=== PATIENT | female | born 1990 | race American Indian/Alaskan Native ===

== ENCOUNTER 2016-10-04 17:07 | Emergency (ER) | payer SELFPAY ==
[2016-10-04 18:02] LABS: Basophils % (Auto) 0.7 % (0.0-1.8); Eosinophils % (Auto) 1.4 % (0.0-4.3); Hematocrit 34.6 % (30.3-42.9); Hemoglobin 11.6 gm/dl (10.1-14.3); Mean Corpuscular HGB Conc 33 % (30-34); Mean Corpuscular Hemoglobin 30 pg (28-32); Mean Corpuscular Volume 91 fl (79-97); Platelet Count 301 K/mm3 (140-440); Red Blood Count 3.82 M/mm3 (3.65-5.03); Red Cell Distribution Width 13.4 % (13.2-15.2); White Blood Count 5.5 K/mm3 (4.5-11.0)
[2016-10-04 19:22] LABS: Bilirubin,Urine NEG (Negative); Blood,Urine LG (Negative); Ketones,Urine NEG (Negative); Leukocyte Esterase,Urine NEG (Negative); Mucus,Urine 3+ /HPF; Nitrite,Urine NEG (Negative)
[2016-10-04 19:26] LABS: RBC,Urine > 182.0 /HPF (0.0-6.0)
--- NOTE | 2016-10-04 19:59 | Emergency Department Report ---
ED Female HPI - General Chief complaint: Vaginal Bleeding Stated complaint: VAGINAL BLEEDING Time Seen by Provider: 10/04/16 19:56 Source: patient Mode of arrival: Ambulatory Limitations: No Limitations - History of Present Illness Initial comments: Patient here states that she is 5 weeks per home test. She says she's been having vaginal bleeding and denies any clots. She says she just started using pads but the blood is bright red and has been soaking her underwear. This started today. She is also complaining of abdominal cramping at 10 out of 10. Denies any urinary burning, frequency or urgency. Denies any vaginal discharge. Patient reports that she had a miscarriage in 2015. Last menstrual period was 09/01/2016. She denies any medical problems. Denies any nausea vomiting or diarrhea. She denies any fever or chills. MD Complaint: vaginal bleeding, pelvic pain -: This morning Radiation: non-radiating Severity: severe Severity scale (0 -10): 10 Quality: cramping Consistency: constant Improves with: none Worsens with: none Are you Now?: Yes Last Menstrual Period: 09/01/16 EDC: 06/08/17 Associated Symptoms: vaginal bleeding, abdominal pain. denies: vaginal discharge, nausea/vomiting, fever/chills, headaches, loss of appetite, dysuria, hematuria, rash, seizure, shortness of breath, syncope, weakness - Related Data Sexually active: Yes Previous Rx's Medication Instructions Recorded Last Taken Type Vit No.130/Iron/FA 1 each PO QDAY #30 tablet 10/04/16 Unknown Rx [ Tablet] Allergies Allergy/AdvReac Type Severity Reaction Status Date / Time No Known Allergies Allergy Unverified 10/04/16 17:26 ED Review of Systems ROS: Stated complaint: VAGINAL BLEEDING Other details as noted in HPI Comment: All other systems reviewed and negative Constitutional: denies: chills, fever Respiratory: no symptoms reported Cardiovascular: denies: chest pain, palpitations, edema, syncope Gastrointestinal: abdominal pain. denies: nausea, vomiting, diarrhea, constipation, hematemesis Genitourinary: other (vaginal bleeding). denies: urgency, dysuria, frequency, hematuria, discharge Musculoskeletal: denies: back pain, arthralgia Skin: denies: rash Neurological: denies: headache, weakness, numbness, paresthesias, abnormal gait , vertigo ED Past Medical Hx - Past Medical History Previous Medical History?: No - Surgical History Past Surgical History?: No - Family History Family history: no significant - Social History Smoking Status: Never Smoker Substance Use Type: None - Medications Home Medications: Home Medications Medication Instructions Recorded Confirmed Last Taken Type Vit No.130/Iron/FA 1 each PO QDAY #30 tablet 10/04/16 Unknown Rx [ Tablet] ED Physical Exam - General Limitations: No Limitations General appearance: alert, in no apparent distress - Head Head exam: Present: atraumatic, normocephalic, normal inspection - Eye Eye exam: Present: PERRL, EOMI. Absent: periorbital swelling, periorbital tenderness - ENT ENT exam: Present: normal exam, normal orophraynx, mucous membranes moist, TM's normal bilaterally, normal external ear exam - Neck Neck exam: Present: normal inspection, full ROM. Absent: tenderness, meningismus, lymphadenopathy - Respiratory Respiratory exam: Present: normal lung sounds bilaterally. Absent: respiratory distress, chest wall tenderness - Cardiovascular Cardiovascular Exam: Present: regular rate, normal rhythm, normal heart sounds - GI/Abdominal GI/Abdominal exam: Present: soft, normal bowel sounds. Absent: distended, tenderness, guarding, rebound, rigid - External exam: Present: normal external exam. Absent: erythema, swelling, lacerations, ecchymosis, bleeding Speculum exam: Present: vaginal bleeding. Absent: erythema, vaginal discharge, cervical discharge, foreign body, tissue, laceration Bi-manual exam: Present: normal bi-manual exam - Expanded Exam Expanded Female exam: Absent: vaginal laceration, tissue present in vagina, herpetic lesions, vulvar erythema, vulvar tenderness, foreign body External exam: Present: normal Amniotic fluid: Present: none Speculum exam: Present: cervical OS closed - Extremities Exam Extremities exam: Present: normal inspection, full ROM, normal capillary refill. Absent: tenderness, pedal edema, joint swelling, calf tenderness - Back Exam Back exam: Present: normal inspection, full ROM. Absent: tenderness, CVA tenderness (R), CVA tenderness (L), muscle spasm, paraspinal tenderness, vertebral tenderness, rash noted - Neurological Exam Neurological exam: Present: alert, oriented X3, normal gait, reflexes normal. Absent: motor sensory deficit - Psychiatric Psychiatric exam: Present: normal affect, normal mood - Skin Skin exam: Present: warm, dry, intact, normal color. Absent: rash ED Course Vital Signs 10/04/16 17:27 Temperature 98.8 F Pulse Rate 64 Respiratory 16 Rate Blood Pressure 106/67 O2 Sat by Pulse 100 Oximetry Vital Signs 10/04/16 10/04/16 17:27 21:14 Temperature 98.8 F 98 F Pulse Rate 64 61 Respiratory 16 18 Rate Blood Pressure 106/67 Blood Pressure 107/62 [Left] O2 Sat by Pulse 100 100 Oximetry - Reevaluation(s) Reevaluation #1: 10/04/16 21:16 Patient is stable. Ultrasound done and awaiting wet prep and ultrasound results. ED Medical Decision Making - Lab Data Result diagrams: 10/04/16 17:43 Lab Results 10/04/16 10/04/16 10/04/16 Range/Units 17:43 17:43 17:48 WBC 5.5 (4.5-11.0) K/mm3 RBC 3.82 (3.65-5.03) M/mm3 Hgb 11.6 (10.1-14.3) gm/dl Hct 34.6 (30.3-42.9) % MCV 91 (79-97) fl MCH 30 (28-32) pg MCHC 33 (30-34) % RDW 13.4 (13.2-15.2) % Plt Count 301 (140-440) K/mm3 Lymph % (Auto) 31.4 (13.4-35.0) % [place] % (Auto) 8.0 H (0.0-7.3) % Eos % (Auto) 1.4 (0.0-4.3) % Baso % (Auto) 0.7 (0.0-1.8) % Lymph # 1.7 (1.2-5.4) K/mm3 [place] # 0.4 (0.0-0.8) K/mm3 Eos # 0.1 (0.0-0.4) K/mm3 Baso # 0.0 (0.0-0.1) K/mm3 Seg Neutrophils % 58.5 (40.0-70.0) % Seg Neutrophils # 3.2 (1.8-7.7) K/mm3 HCG, Quant [id number] H (0-4) mIU/mL Urine Color (Yellow) Urine Turbidity (Clear) Urine pH (5.0-7.0) Ur Specific [place] (1.003-1.030) Urine Protein (Negative) mg/dL Urine Glucose (UA) (Negative) mg/dL Urine Ketones (Negative) mg/dL Urine Blood (Negative) Urine Nitrite (Negative) Urine Bilirubin (Negative) Urine Urobilinogen (<2.0) mg/dL Ur Leukocyte Esterase (Negative) Urine WBC (Auto) (0.0-6.0) /HPF Urine RBC (Auto) (0.0-6.0) /HPF U Epithel Cells (Auto) (0-13.0) /HPF Urine Mucus /HPF Blood Type B POSITIVE Antibody Screen Negative 10/04/16 Range/Units 18:48 WBC (4.5-11.0) K/mm3 RBC (3.65-5.03) M/mm3 Hgb (10.1-14.3) gm/dl Hct (30.3-42.9) % MCV (79-97) fl MCH (28-32) pg MCHC (30-34) % RDW (13.2-15.2) % Plt Count (140-440) K/mm3 Lymph % (Auto) (13.4-35.0) % [place] % (Auto) (0.0-7.3) % Eos % (Auto) (0.0-4.3) % Baso % (Auto) (0.0-1.8) % Lymph # (1.2-5.4) K/mm3 [place] # (0.0-0.8) K/mm3 Eos # (0.0-0.4) K/mm3 Baso # (0.0-0.1) K/mm3 Seg Neutrophils % (40.0-70.0) % Seg Neutrophils # (1.8-7.7) K/mm3 HCG, Quant (0-4) mIU/mL Urine Color Yellow (Yellow) Urine Turbidity Slightly-cloudy (Clear) Urine pH 6.0 (5.0-7.0) Ur Specific [place] 1.027 (1.003-1.030) Urine Protein 30 mg/dl (Negative) mg/dL Urine Glucose (UA) Neg (Negative) mg/dL Urine Ketones Neg (Negative) mg/dL Urine Blood Lg (Negative) Urine Nitrite Neg (Negative) Urine Bilirubin Neg (Negative) Urine Urobilinogen 2.0 (<2.0) mg/dL Ur Leukocyte Esterase Neg (Negative) Urine WBC (Auto) 4.0 (0.0-6.0) /HPF Urine RBC (Auto) > 182.0 (0.0-6.0) /HPF U Epithel Cells (Auto) 3.0 (0-13.0) /HPF Urine Mucus 3+ /HPF Blood Type Antibody Screen Wet prep reveal no scleral, no yeast or Trichomonas. Gonorrhea and chlamydia tests pending - Radiology Data Radiology results: report reviewed Any chance vaginal and transabdominal shows single live intrauterine gestation at approximately 5 weeks and 6 days. heartbeat is 100 bpm. EDC 2016. Subchorionic hemorrhage is present. 1.8 cm cyst to right ovary - Medical Decision Making Collaborated with Dr. Gannon on management ED course: Patient presented to emergency room with vaginal bleeding and I suspect that she is at 5 weeks due to positive home test. Quantitative hCG positive. Ultrasound transvaginal and transabdominal reveal patient at 5 weeks 6 days with heart beat at 100 bpm. Patient with some subchorionic bleed and right ovarian cyst. Patient with prep negative and gonorrhea and chlamydia test is pending. RESULTS and ultrasound result discussed with patient. Her that this is considered a threatened and she needs to follow up with [facility] and 2 days. She does not have [facility] for her to on-call [facility] Dr. Jordy Fisher. I instructed her that she needs to start taking vitamins and to rest for the next 72 hours. She voices understanding of discharge instruction and discharged home with prescription for vitamin. - Differential Diagnosis ectopic , miscarriage, UTI, abdominal pain unspecified Critical care attestation.: If time is entered above; I have spent that time in minutes in the direct care of this critically ill patient, excluding procedure time. ED Disposition Clinical Impression: Threatened miscarriage in early , Vaginal bleeding before 22 weeks gestation Abdominal pain in Qualifiers: Trimester: first trimester Qualified Code(s): O26.891 - Other specified related conditions, first trimester; R10.9 - Unspecified abdominal pain Disposition: DISCHARGED TO HOME OR SELFCARE Is pt being admited?: No Does the pt Need Aspirin: No Condition: Stable Instructions: Threatened Miscarriage (ED), Abdominal Pain in (ED) Prescriptions: Vit No.130/Iron/FA [ Tablet] 1 each PO QDAY #30 tablet Referrals: MICHAELA FISHER MD [Staff Physician] - 10/06/16 PRIMARY CAREMD [Primary Care Provider] - 10/06/16 Forms: Accompanied Note, Work/School Release Form(ED)
[2016-10-04 21:16] VITALS: BP 107/62
--- NOTE | 2016-10-04 21:21 | Ultrasound Report ---
FINAL REPORT PROCEDURE: US OB transabdominal and TRANSVAGINAL TECHNIQUE: Real-time transabdominal and transvaginal sonography of the uterus, placenta, amniotic fluid, adnexa, and fetus was performed with image documentation. Measurements were obtained to determine age/size. M-mode Doppler was used to document heartbeat. CPT 52154 and 66477 HISTORY: vaginal bleeding with COMPARISON: No prior studies are available for comparison. FINDINGS: ADDITIONAL GESTATION: None. CRL: 2.9 mm, which corresponds to a gestational age of: 5 weeks, 6 days. Yolk Sac: Normal. Embryonic Cardiac Activity: 100 beats per minute Gestational Sac: Adjacent to the gestational sac, there is a heterogeneous predominantly hypoechoic area, which is likely related to a subchorionic hemorrhage, measuring 3.6 x 1.7 x 3.4 centimeters. Amniotic fluid: Normal. Cervix: Normal. Right Ovary: 1.8 centimeter cyst is present Left Ovary: Normal. Estimated delivery date: 05/31/2017 IMPRESSION: 1. Single live intrauterine gestation at approximately 5 weeks, 6 days. 2. EDC by US 05/31/2017 3. Complete anatomic survey at 18-20 weeks suggested. 4. Subchorionic hemorrhage is present.
--- NOTE | 2016-10-04 21:21 | Ultrasound Report ---
FINAL REPORT PROCEDURE: US OB transabdominal and TRANSVAGINAL TECHNIQUE: Real-time transabdominal and transvaginal sonography of the uterus, placenta, amniotic fluid, adnexa, and fetus was performed with image documentation. Measurements were obtained to determine age/size. M-mode Doppler was used to document heartbeat. CPT 13232 and 28574 HISTORY: vaginal bleeding with COMPARISON: No prior studies are available for comparison. FINDINGS: ADDITIONAL GESTATION: None. CRL: 2.9 mm, which corresponds to a gestational age of: 5 weeks, 6 days. Yolk Sac: Normal. Embryonic Cardiac Activity: 100 beats per minute Gestational Sac: Adjacent to the gestational sac, there is a heterogeneous predominantly hypoechoic area, which is likely related to a subchorionic hemorrhage, measuring 3.6 x 1.7 x 3.4 centimeters. Amniotic fluid: Normal. Cervix: Normal. Right Ovary: 1.8 centimeter cyst is present Left Ovary: Normal. Estimated delivery date: 05/31/2017 IMPRESSION: 1. Single live intrauterine gestation at approximately 5 weeks, 6 days. 2. EDC by US 05/31/2017 3. Complete anatomic survey at 18-20 weeks suggested. 4. Subchorionic hemorrhage is present. PROCEDURE: TECHNIQUE: HISTORY: COMPARISON: FINDINGS: IMPRESSION:
== END 2016-10-04 22:14 | disposition home or self-care (01) ==
LOC: ED 17:07
DX: O20.0 Threatened abortion (principal)
CPT/HCPCS: 36415; 76801; 76817; 81001; 84702; 85025; 86850; 86900; 86901; 87210; 87591

== ENCOUNTER 2017-05-28 09:31 | Outpatient (CLI) | payer MEDICAID ==
[2017-05-28 10:10] VITALS: BP 125/85
[2017-05-28] MEDS ORDERED: VISTARIL PO PRN (13:55)
--- NOTE | 2017-05-28 14:18 | Ultrasound Report ---
ULTRASOUND BIOPHYSICAL PROFILE: History: well being Technique: Transabdominal ultrasound with Doppler interrogation. 2 - breathing movements 2 - movements 2 - posture and tone 2 - Qualitative amniotic fluid volume 8 - TOTAL SCORE OF POSSIBLE 8 Heart Rate (bpm) 122
--- NOTE | 2017-05-28 14:22 | Ultrasound Report ---
OB ULTRASOUND FOLLOWUP History: well-being, estimated weight. Technique: Transabdominal ultrasound with Doppler interrogation. Gestation: Single Position: Cephalic Amniotic Fluid: Normal RELL = 7.1 cm Heart Rate: 122 BPM BPD: 9.9 cm = 40 w 3 d HC: 33.3 cm = 38 w 0 d AC: 34.6 cm = 38 w 4 d FL: 7.6 cm = 38 w 6 d HC/AC Ratio: 0.96 Cephalic Index: 96.9 Estimated Weight: 3585 grams. 54th percentile. LMP: One since 07/29 Clinical age = 39 w 4 d EDC: 05/31/17 US Gest. Age = 39 w 0 d EDC: 06/04/17 Impression: No acute abnormality is appreciated.
== END 2017-05-28 14:03 | disposition home or self-care (01) ==
LOC: TRG 09:31
PROVIDERS: ATTEND Obstetrics & Gynecology
DX: O47.1 False labor at or after 37 completed weeks of gestation (principal); Z3A.39 39 weeks gestation of pregnancy
CPT/HCPCS: 76816; 76819; Q0177

== ENCOUNTER 2017-05-28 16:53 | Inpatient (IN) | payer MEDICAID ==
[2017-05-28] MEDS ORDERED: PITOCin/NS 20 UNIT/1000ML DRIP 20,000 MILLIUNITS/1,000 ML BAG IV ONE (17:19)
--- NOTE | 2017-05-28 17:32 | History and Physical Report ---
History of Present Illness Date of examination: 05/28/17 Date of admission: 05/28/17 16:58 Chief complaint: 26 yo at 39 wk 4d in active labor, complete. No problems. MBT B pos, Immune and GBS neg History of present illness: Remainder of H&P from [facility] and confirmed today. OB Intake Ethnicity: Father of baby: Ngoc Leger Vital Signs Height: 63 in. Weight (lb): 111 BMI: 19.7 BP: 110/ 62 mm Hg Ur. Protein: Negative Ur. Glucose: Negative Chief Complaint/Current Status: c/o missed period,c/o nauseated..........................igarcia pt sts she has been bleeding Menstrual History Regularity: regular Menses every: 28 days Duration: 6-7 LMP: 09/01/2016 LMP reliability: month known LMP character: normal test type: urine test Date: 10/18/2016 BC at conception: other Planned ? no EDC Calculations LMP: 06/08/2017 EDC Confirmation: 05/31/2017 Gestational Age: 7 6/7 weeks Past History : 3 Term Births: 1 Living Children: 1 Para: 1 Spont. 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 of genital herpes: yes Varicella/Chicken Pox Status: Previous Disease Genetic History Congenital Heart Defect: Mom: no Dad: no Marshall Disease: Mom: no Dad: no Thalassemia Mom: no Dad: no Neural Tube Defect Mom: no Dad: no Down's Syndrome Mom: no Dad: no Rene-Sachs Mom: no Dad: no Sickle Cell Disease/Trait Mom: no Dad: no Hemophilia Mom: no Dad: no Muscular Dystrophy Mom: no Dad: no Cystic Fibrosis Mom: no Dad: no [place] Chorea Mom: no Dad: no Mental Retardation Mom: no Dad: no Fragile X Mom: no Dad: no Other Genetic/Chromosomal Disorder Mom: no Dad: no Child w/other defect Mom: no Dad: no Enviromental Exposures Xray Exposure: no Medication, drug, or alcohol use since LMP: no Chemical/Other Exposure: no Exposure to Cat Liter: no Hx of Parvovirus (Fifth Disease): no Occupational Exposure to Children: none Active Medications (reviewed today): PROMETHAZINE HCL 12.5 MG TABS (PROMETHAZINE HCL) 1 po q 6 hrs prn nausea PLUS 27-1 MG TABS ( VIT-FE FUMARATE-FA) 1 po Current Allergies (reviewed today): No known allergies Laboratory Results Date/Time Collected: 10/18/2016 Routine Urinalysis Protein: Negative Glucose: Negative Urine HCG: positive PHYSICAL EXAM HEENT: PERRLA, normal conjunctiva, external nose and nasal mucosa normal, oropharynx clear Neck/Thyroid: supple, thyroid normal Skin no significant abnormal lesions or rashes Chest: respiratory effort normal, clear to auscultation Breasts: normal without skin changes or masses CV: regular, normal S1-S2, no murmur, no rub, no gallop Abdomen: normal bowel sounds, soft, nontender, no HSM Musculoskeletal: grossly normal ROM in joints, no joint tenderness or muscle weakness Neuro: grossly normal DTRs, sensation, strength, cranial nerves Extremities: no clubbing, cyanosis, or edema 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 1 po Past History - Obstetrical History : 2 Medications and Allergies Allergies Allergy/AdvReac Type Severity Reaction Status Date / Time No Known Allergies Allergy Unverified 10/04/16 17:26 Home Medications Medication Instructions Recorded Confirmed Last Taken Type Vit No.130/Iron/Folic 1 each PO QDAY #30 tablet 10/04/16 Unknown Rx [ Tablet] Results All other labs normal. Assessment and Plan - Patient Problems (1) Active labor at term Current Visit: Yes Status: Acute Plan to address problem: deliver
--- NOTE | 2017-05-28 17:35 | Procedure Note ---
OB Delivery Note - Delivery Date of Delivery: 05/28/17 Surgeon: JOSE MARKHAM Estimated blood loss: 300cc - Vaginal Delivery presentation: vertex Delivery position: OA Intrapartum events: precipitous labor- <3hr, shoulder dystocia (mild, resolved with positioning and traction) Delivery induction: none Delivery monitor: external FHT Route of delivery: Delivery placenta: spontaneous Delivery cord: nuchal cord, 3 umbilical vessels Episiotomy: none Delivery laceration: none Anesthesia: none - A at 1 minute: 9 at 5 minutes: 9 Gender: Male (8#10oz)
[2017-05-28] MEDS ORDERED: XYLOCAINE 2% INFILTRATI ONE (17:36)
[2017-05-28] MEDS ORDERED: BRETHINE SUB-Q PRN (17:36)
[2017-05-28] MEDS ORDERED: ePHEDrine SULFATE IV PRN (17:36)
[2017-05-28] MEDS ORDERED: BRETHINE IVP PRN (17:36)
[2017-05-28] MEDS ORDERED: MINERAL OIL PO PRN (17:36)
[2017-05-28] MEDS ORDERED: PHENERGAN PR PRN (17:39)
[2017-05-28] MEDS ORDERED: ZOFRAN IV PRN (17:39)
[2017-05-28] MEDS ORDERED: BENADRYL PO PRN (17:39)
[2017-05-28] MEDS ORDERED: MILK OF MAGNESIA PO PRN (17:39)
[2017-05-28] MEDS ORDERED: LANSINOH TP PRN (17:39)
[2017-05-28] MEDS ORDERED: DULCOLAX PR PRN (17:39)
[2017-05-28] MEDS ORDERED: TYLENOL PO PRN (17:39)
[2017-05-28] MEDS ORDERED: PHENERGAN PO PRN (17:39)
[2017-05-28 17:58] LABS: Hematocrit 33.2 % (30.3-42.9); Hemoglobin 10.6 gm/dl (10.1-14.3); Mean Corpuscular HGB Conc 32 % (30-34); Mean Corpuscular Hemoglobin 28 pg (28-32); Mean Corpuscular Volume 87 fl (79-97); Platelet Count 339 K/mm3 (140-440); Red Blood Count 3.82 M/mm3 (3.65-5.03); Red Cell Distribution Width 14.3 % (13.2-15.2); White Blood Count 10.2 K/mm3 (4.5-11.0)
[2017-05-28] MEDS ORDERED: PITOCin/NS 30 UNIT/500ML 30 UNITS/500 ML BAG IV SCH (18:00)
[2017-05-28] MEDS ORDERED: PITOCin/NS 20 UNIT/1000ML DRIP 20 UNITS/1,000 ML BAG IV SCH ×2 (18:00)
[2017-05-28] MEDS ORDERED: SODIUM CHLORIDE FLUSH SYRINGE 10 ML IV SCH (18:00)
[2017-05-28] MEDS ORDERED: LACTATED RINGERS 1,000 ML IV SCH (18:00)
[2017-05-28] MEDS: MOTRIN PO SCH ×2 (18:03→23:53)
[2017-05-28] MEDS: NORCO 5/325 PO PRN (18:03)
[2017-05-28] MEDS: TUCKS PAD TP PRN (20:55)
[2017-05-28] MEDS: COLACE PO SCH (20:55)
[2017-05-28] MEDS ORDERED: SENOKOT S PO SCH (22:00)
[2017-05-29] MEDS ORDERED: BOOSTRIX IM ONE (06:00)
[2017-05-29] MEDS: NORCO 5/325 PO PRN ×2 (06:02→15:58)
[2017-05-29] MEDS: MOTRIN PO SCH ×3 (06:02→18:12)
[2017-05-29 06:17] LABS: Hematocrit 25.1 % (30.3-42.9); Hemoglobin 8.3 gm/dl (10.1-14.3)
[2017-05-29] MEDS: COLACE PO SCH (09:23)
--- NOTE | 2017-05-29 13:05 | Discharge Summary ---
Providers - Providers Date of Admission: 05/28/17 16:58 Date of discharge: 05/29/17 (pt requests d/c) Attending physician: JOSE MARKHAM Primary care physician: JOSE MARKHAM Hospitalization Reason for admission: active labor Delivery: Episiotomy: none Laceration: none Incision: normal Other procedures: none complications: none Discharge diagnosis: IUP at term delivered [place] baby: male (declines circumcision) Hospital course: uncomplicated vaginal delivery Pt w/o complaint VSS FF below umb Lochia small Perineum intact H&H 04/06 drop r/ t blood loss from delivery. Pt asymptomatic of anemia. P: d/c today with instructions RTO 4 weeks PP care. Condition at discharge: Good Disposition: DC-01 TO HOME OR SELFCARE - Discharge Diagnoses (1) Spontaneous vaginal delivery Status: Acute Comment: rto 4 weeks pp care Plan - Discharge Medications Prescriptions: Ibuprofen [Motrin 600 MG tab] 600 mg PO Q8H PRN #30 tablet PRN Reason: Pain Lidocain2.5%/Prilocai2.5% [Emla] 5 gm TP 1XW #1 tube - Provider Discharge Summary Activity: routine, no sex for 6 weeks, no heavy lifting 4 weeks, no strenuous exercise Diet: routine Instructions: routine Additional instructions: [] Smoking cessation referral if applicable(refer to patient education folder for contact #) [] Refer to [facility] Booklet Call your doctor immediately for: * Fever > 100.5 * Heavy vaginal bleeding ( >1 pad per hour) * Severe persistent headache * Shortness of breath * Reddened, hot, painful area to leg or breast * Drainage or odor from incision. * Keep incision clean and dry at all times and follow doctor's instructions regarding bathing/showering - Follow up plan Follow up: JOSE MARKHAM MD [Primary Care Provider] - 06/28/17 (Congratulations! Please call [phone] to schedule your visit in 4 weeks. Take medications as prescribed. Call with any concerns.)
[2017-05-29 16:44] VITALS: BP 119/65
[2017-05-29] MEDS: TUCKS PAD TP PRN (20:37)
== END 2017-05-29 20:40 | disposition home or self-care (01) | DRG 775 ==
LOC: TRG 16:53 → LD 16:58 → OB 20:10
PROVIDERS: ADMIT Obstetrics & Gynecology; ATTEND Obstetrics & Gynecology
PROC: 10E0XZZ Delivery of Products of Conception, External Approach (ICD-10-PCS; principal; 2017-05-28)
DX: O62.3 Precipitate labor (principal); R71.0 Precipitous drop in hematocrit; O66.0 Obstructed labor due to shoulder dystocia; O69.81X0 Labor and delivery complicated by cord around neck, without compression, not applicable or unspecified; Z3A.39 39 weeks gestation of pregnancy; Z37.0 Single live birth
CPT/HCPCS: 36415; 85014; 85018; 85027; 86592; 86850; 86900; 86901; A6250; J2590

== ENCOUNTER 2021-01-19 11:20 | Emergency (ER) | payer BC, MEDICAID ==
[2021-01-19 11:28] VITALS: BP 99/70
--- NOTE | 2021-01-19 11:34 | Emergency Department Report ---
ED Chest Pain HPI - General Chief Complaint: Chest Pain Stated Complaint: CHEST PAIN GOING THROUGH SHOULDERS Time Seen by Provider: 01/19/21 11:30 Source: patient Mode of arrival: Ambulatory Limitations: No Limitations - History of Present Illness Initial Comments: 30-year-old -[place] female patient presents with complaints of substernal chest pain x1.5 weeks. Patient describes the pain as aching and sharp and rates it as a 7/10 in severity. Pain is intermittent and worsens with movement per patient. She states ibuprofen and Tylenol are not helping with her pain. She denies any heartburn, nausea/vomiting, abdominal pain, fever/chills/ sweats, cough, or chest wall injuries. She does admit to regular heavy lifting at work. Patient also admits to a recent 10-hour car ride from [place] 2 weeks ago. Mild shortness of breath with movement per patient. Last Depo-Provera shot was April 2020. No leg pain/swelling or history of DVT/PE per patient. Patient also denies any personal past medical history or family history of heart disease - Related Data Previous Rx's Medication Instructions Recorded Last Taken Type Vit No.130/Iron/Folic 1 each PO QDAY #30 tablet 10/04/16 Unknown Rx [ Tablet] Ibuprofen [Motrin 600 MG tab] 600 mg PO Q8H PRN #30 tablet 05/28/17 Unknown Rx Lidocain2.5%/Prilocai2.5% [Emla] 5 gm TP 1XW #1 tube 05/28/17 Unknown Rx Docusate Sodium [Colace] 100 mg PO BID PRN #60 capsule 05/29/17 Unknown Rx Ferrous Sulfate [Feosol 325 MG tab] 325 mg PO BID #60 tablet 05/29/17 Unknown Rx Naproxen 500 mg PO BID PRN #20 tablet 01/19/21 Unknown Rx methocarbamoL [Methocarbamol] 500 mg PO TID PRN #20 tablet 01/19/21 Unknown Rx Allergies Allergy/AdvReac Type Severity Reaction Status Date / Time No Known Allergies Allergy Unverified 10/04/16 17:26 Heart Score - HEART Score History: Slightly suspicious EKG: Normal Age: < 45 Risk factors: No known risk factors Troponin: < normal limit HEART Score: 0 - EKG Read Time Time EKG Completed: 00:00 EKG Read Time: 00:00 - Critical Actions Critical Actions: 0-3 pts:0.9-1.7%risk of adverse cardiac event.Candidate for discharge ED Review of Systems ROS: Stated complaint: CHEST PAIN GOING THROUGH SHOULDERS Other details as noted in HPI Constitutional: denies: chills, diaphoresis, fever, malaise, weakness ENT: denies: throat pain Respiratory: SOB with exertion. denies: cough Cardiovascular: chest pain. denies: palpitations Gastrointestinal: denies: abdominal pain, nausea, vomiting Musculoskeletal: denies: back pain Skin: denies: rash, lesions Neurological: denies: headache Hematological/Lymphatic: denies: easy bleeding ED Past Medical Hx - Past Medical History Hx Hypertension: No Hx Congestive Heart Failure: No Hx Diabetes: No Hx Deep Vein Thrombosis: No Hx Renal Disease: No Hx Sickle Cell Disease: No Hx Seizures: No Hx Asthma: No Hx COPD: No Hx HIV: No - Social History Smoking Status: Never Smoker - Medications Home Medications: Home Medications Medication Instructions Recorded Confirmed Last Taken Type Vit No.130/Iron/Folic 1 each PO QDAY #30 tablet 10/04/16 Unknown Rx [ Tablet] Ibuprofen [Motrin 600 MG tab] 600 mg PO Q8H PRN #30 tablet 05/28/17 Unknown Rx Lidocain2.5%/Prilocai2.5% [Emla] 5 gm TP 1XW #1 tube 05/28/17 Unknown Rx Docusate Sodium [Colace] 100 mg PO BID PRN #60 capsule 05/29/17 Unknown Rx Ferrous Sulfate [Feosol 325 MG tab] 325 mg PO BID #60 tablet 05/29/17 Unknown Rx Naproxen 500 mg PO BID PRN #20 tablet 01/19/21 Unknown Rx methocarbamoL [Methocarbamol] 500 mg PO TID PRN #20 tablet 01/19/21 Unknown Rx ED Physical Exam - General Limitations: No Limitations General appearance: alert, in no apparent distress - Head Head exam: Present: atraumatic, normocephalic - Eye Eye exam: Present: normal appearance. Absent: scleral icterus - Neck Neck exam: Present: normal inspection, full ROM - Respiratory Respiratory exam: Present: normal lung sounds bilaterally, chest wall tenderness (Tenderness to palpation noted bilaterally to parasternal region of chest). Absent: respiratory distress, accessory muscle use - Cardiovascular Cardiovascular Exam: Present: regular rate, normal rhythm - GI/Abdominal GI/Abdominal exam: Present: soft, normal bowel sounds. Absent: distended, tenderness, guarding, rebound, rigid - Extremities Exam Extremities exam: Absent: calf tenderness (No swelling noted or tenderness legs bilaterally) - Neurological Exam Neurological exam: Present: alert, oriented X3, normal gait - Psychiatric Psychiatric exam: Present: normal affect, normal mood - Skin Skin exam: Present: warm, dry, intact, normal color. Absent: rash ED Course Vital Signs 01/19/21 01/19/21 11:25 11:26 Temperature 98.0 F Pulse Rate 65 60 Respiratory 20 Rate Blood Pressure 99/70 O2 Sat by Pulse 98 100 Oximetry ED Medical Decision Making - Lab Data Result diagrams: 01/19/21 11:45 01/19/21 11:45 Lab Results 01/19/21 01/19/21 01/19/21 Range/Units 11:45 11:45 11:45 WBC 5.7 (4.5-11.0) K/mm3 RBC 3.83 (3.65-5.03) M/mm3 Hgb 12.2 (10.1-14.3) gm/dl Hct 36.3 (30.3-42.9) % MCV 95 (79-97) fl MCH 32 (28-32) pg MCHC 34 (30-34) % RDW 13.3 (13.2-15.2) % Plt Count 293 (140-440) K/mm3 Lymph % (Auto) 31.1 (13.4-35.0) % Yates % (Auto) 6.9 (0.0-7.3) % Eos % (Auto) 1.5 (0.0-4.3) % Baso % (Auto) 1.4 (0.0-1.8) % Lymph # (Auto) 1.8 (1.2-5.4) K/mm3 Yates # (Auto) 0.4 (0.0-0.8) K/mm3 Eos # (Auto) 0.1 (0.0-0.4) K/mm3 Baso # (Auto) 0.1 (0.0-0.1) K/mm3 Seg Neutrophils % 59.1 (40.0-70.0) % Seg Neutrophils # 3.3 (1.8-7.7) K/mm3 D-Dimer < 135.00 (0-234) ng/mlDDU Sodium 139 (137-145) mmol/L Potassium 3.8 (3.6-5.0) mmol/L Chloride 103.1 (98-107) mmol/L Carbon Dioxide 25 (22-30) mmol/L Anion Gap 15 mmol/L BUN 12 (7-17) mg/dL Creatinine 0.7 (0.6-1.2) mg/dL Estimated GFR > 60 ml/min BUN/Creatinine Ratio 17 % Glucose 65 (65-100) mg/dL Calcium 9.3 (8.4-10.2) mg/dL Total Bilirubin 0.30 (0.1-1.2) mg/dL AST 18 (5-40) units/L ALT 20 (7-56) units/L Alkaline Phosphatase 83 (35-129) units/L Troponin T < 0.010 (0.00-0.029) ng/mL Total Protein 7.0 (6.3-8.2) g/dL Albumin 4.4 (3.9-5) g/dL Albumin/Globulin Ratio 1.7 % HCG, Qual (Negative) 01/19/21 Range/Units 11:45 WBC (4.5-11.0) K/mm3 RBC (3.65-5.03) M/mm3 Hgb (10.1-14.3) gm/dl Hct (30.3-42.9) % MCV (79-97) fl MCH (28-32) pg MCHC (30-34) % RDW (13.2-15.2) % Plt Count (140-440) K/mm3 Lymph % (Auto) (13.4-35.0) % Yates % (Auto) (0.0-7.3) % Eos % (Auto) (0.0-4.3) % Baso % (Auto) (0.0-1.8) % Lymph # (Auto) (1.2-5.4) K/mm3 Yates # (Auto) (0.0-0.8) K/mm3 Eos # (Auto) (0.0-0.4) K/mm3 Baso # (Auto) (0.0-0.1) K/mm3 Seg Neutrophils % (40.0-70.0) % Seg Neutrophils # (1.8-7.7) K/mm3 D-Dimer (0-234) ng/mlDDU Sodium (137-145) mmol/L Potassium (3.6-5.0) mmol/L Chloride (98-107) mmol/L Carbon Dioxide (22-30) mmol/L Anion Gap mmol/L BUN (7-17) mg/dL Creatinine (0.6-1.2) mg/dL Estimated GFR ml/min BUN/Creatinine Ratio % Glucose (65-100) mg/dL Calcium (8.4-10.2) mg/dL Total Bilirubin (0.1-1.2) mg/dL AST (5-40) units/L ALT (7-56) units/L Alkaline Phosphatase (35-129) units/L Troponin T (0.00-0.029) ng/mL Total Protein (6.3-8.2) g/dL Albumin (3.9-5) g/dL Albumin/Globulin Ratio % HCG, Qual Negative (Negative) - EKG Data EKG shows normal: sinus rhythm Rate: normal - Radiology Data Radiology results: report reviewed CHEST PA AND LATERAL VIEWS INDICATION: chest pain. COMPARISON: None. FINDINGS: Support devices: None. Heart: Within normal limits. Lungs/Pleura: No acute pulmonary or pleural findings. - Medical Decision Making 30-year-old -[place] female patient presents with complaints of substernal chest pain x1.5 weeks. Patient describes the pain as aching and sharp and rates it as a 7/10 in severity. Pain is intermittent and worsens with movement per patient. She states ibuprofen and Tylenol are not helping with her pain. She denies any heartburn, nausea/vomiting, abdominal pain, fever/chills/sweats, cough, or chest wall injuries. She does admit to regular heavy lifting at work. Patient also admits to a recent 10-hour car ride from [place] 2 weeks ago. Mild shortness of breath with movement per patient. Last Depo-Provera shot was April 2020. No leg pain/swelling or history of DVT/PE per patient. Patient also denies any personal past medical history or family history of heart disease Labs, EKG, and chest x-ray are normal. Heart score = 1. Dimer is normal. Suspect costochondritis given tenderness to palpation of the parasternal area on exam. Recommend icing and NSAIDs. Patient to follow-up with primary care in 3 to 5 days. Strict return precautions were discussed in detail with patient who verbalized understanding. Critical care attestation.: If time is entered above; I have spent that time in minutes in the direct care of this critically ill patient, excluding procedure time. ED Disposition Clinical Impression: Chest pain, Costochondritis, acute Disposition: DC- TO HOME OR SELFCARE Is pt being admited?: No Condition: Stable Instructions: Costochondritis, [id number], Nonspecific Chest Pain, Adult Additional Instructions: Please apply ice to the chest wall for 15 minutes at a time 3 times a day for at least 3 days Prescriptions: methocarbamoL [Methocarbamol] 500 mg PO TID PRN #20 tablet PRN Reason: muscle spasm/tightness Naproxen 500 mg PO BID PRN #20 tablet PRN Reason: pain Referrals: [facility] [Provider Group] - 3-5 Days Forms: Work/School Release Form(ED)
[2021-01-19 12:15] LABS: Basophils # (Auto) 0.1 K/mm3 (0.0-0.1); Basophils % (Auto) 1.4 % (0.0-1.8); Eosinophils # (Auto) 0.1 K/mm3 (0.0-0.4); Eosinophils % (Auto) 1.5 % (0.0-4.3); Hematocrit 36.3 % (30.3-42.9); Hemoglobin 12.2 gm/dl (10.1-14.3); Lymphocytes # (Auto) 1.8 K/mm3 (1.2-5.4); Lymphocytes % (Auto) 31.1 % (13.4-35.0); Mean Corpuscular HGB Conc 34 % (30-34); Mean Corpuscular Volume 95 fl (79-97); Monocytes # (Auto) 0.4 K/mm3 (0.0-0.8); Monocytes % (Auto) 6.9 % (0.0-7.3); Platelet Count 293 K/mm3 (140-440); Red Blood Count 3.83 M/mm3 (3.65-5.03); Red Cell Distribution Width 13.3 % (13.2-15.2)
[2021-01-19 12:30] LABS: Alanine Aminotransferase 20 units/L (7-56); Albumin 4.4 g/dL (3.9-5); BUN/Creatinine Ratio 17; Blood Urea Nitrogen 12 mg/dL (7-17); Calcium 9.3 mg/dL (8.4-10.2); Hemolysis Index 8
--- NOTE | 2021-01-19 13:29 | XRay Report ---
CHEST PA AND LATERAL VIEWS INDICATION: chest pain. COMPARISON: None. FINDINGS: Support devices: None. Heart: Within normal limits. Lungs/Pleura: No acute pulmonary or pleural findings. IMPRESSION: 1. No acute findings. Signer Name: Scottie Tuttle MD Signed: 01/19/2021 1:24 PM Workstation Name: [id number]
== END 2021-01-19 16:20 | disposition home or self-care (01) ==
LOC: ED 11:20
DX: M94.0 Chondrocostal junction syndrome [Tietze] (principal); R07.89 Other chest pain; Z79.1 Long term (current) use of non-steroidal anti-inflammatories (NSAID); Z79.899 Other long term (current) drug therapy
CPT/HCPCS: 36415; 71046; 80053; 84484; 84703; 85025; 85379